=== PATIENT | female | born 1990 | race African-American/Black ===

== ENCOUNTER 2016-11-30 17:54 | Inpatient (IN) | payer BC ==
[~2016-11-30] VITALS: Ht 170.2 cm; Wt 97.5 kg
[~2016-11-30 17:54] MED LIST: HYDR-4100 PO; IBUP-1969 PO; LORA-259 PO; METO25TA6 PO; NECON; SOMA; VICODEN; VICODIN PO; XANAX PO
[2016-11-30 17:58] VITALS: BP 144/97; PULSE 128; RESP 22; TEMP 97.6; O2SAT 100
[2016-11-30] MEDS ORDERED: methylPREDNISolone SOD SUCC/PF 62.5 MG/ML VIAL IVP ONE (18:15)
[2016-11-30] MEDS ORDERED: DIPHENHYDRAMINE INJ 50 MG/ML VIAL IVP ONE (18:15)
[2016-11-30] MEDS ORDERED: FAMOTIDINE PF 20 MG/2 ML VIAL IVP ONE (18:15)
[2016-11-30 19:06] LABS: BASOPHILS % (AUTO) 0.3 % (0.0-2.0); EOSINOPHILS % (AUTO) 0.2 % (0.0-4.0); HEMOGLOBIN 13.4 g/dL (12.0-16.0); LYMPHOCYTES # (AUTO) 2.2 K/uL (1.0-5.5); LYMPHOCYTES % (AUTO) 20.5 % (20.5-51.5); MEAN CORPUSCULAR HEMOGLOBIN 26 pg (27-31); MEAN CORPUSCULAR HGB CONC 33 % (32-36); MEAN CORPUSCULAR VOLUME 80 fL (79.0-98.0); MONOCYTES # (AUTO) 0.4 K/uL (0.0-1.0); MONOCYTES % (AUTO) 3.5 % (1.7-9.3); NEUTROPHILS # (AUTO) 7.9 K/uL (1.8-7.7); NEUTROPHILS % (AUTO) 75.5 % (40.0-70.0); PLATELET COUNT (AUTO) 426 K/uL (130-430); RED BLOOD CELL COUNT(AUTO) 5.11 MIL/uL (4.2-6.2); RED CELL DISTRIBUTION WIDTH 17.1 % (9.0-15.0); WHITE BLOOD COUNT (AUTO) 10.5 K/uL (4.8-10.8)
[2016-11-30 20:00] LABS: BILIRUBIN,URINE NEGATIVE (NEGATIVE); BLOOD, URINE NEGATIVE (NEGATIVE); CLARITY/URINE HAZY (CLEAR); COLOR,URINE YELLOW (YELLOW); GLUCOSE,URINE NEGATIVE (NEGATIVE); KETONES,URINE NEGATIVE (NEGATIVE); LEUKOCYTE ESTERASE ,URINE NEGATIVE (NEGATIVE); NITRITE, URINE NEGATIVE (NEGATIVE); PROTEIN URINE TRACE (NEGATIVE); UROBILINOGEN,URINE 0.2 (0.2-1.0)
[2016-11-30 20:11] LABS: BACTERIA,URINE FEW /HPF (None Seen); MUCUS,URINE 2+ /LPF (None Seen); RBC,URINE 0-3 /HPF (0-3); URINE AMORPHOUS URATE 1+ /HPF (None Seen); WBC,URINE 0-3 /HPF (0-3)
[2016-11-30 20:36] LABS: CALCIUM 9.7 mg/dL (8.4-11.0); CREATININE 0.9 mg/dL (0.55-1.30); POTASSIUM 3.4 mmol/L (3.5-5.1)
[2016-11-30 20:42] LABS: ALBUMIN 4.8 g/dL (3.4-4.8); TOTAL BILIRUBIN 0.2 mg/dL (0.0-1.0); TOTAL PROTEIN, SERUM 9.2 g/dL (6.4-8.3)
[2016-11-30] MEDS ORDERED: KETOROLAC TROMETHAMINE 60 MG/2 ML VIAL IM ONE (22:00)
[2016-11-30] MEDS ORDERED: ONDANSETRON 4 MG ODT TAB PO ONE (22:00)
[2016-11-30] MEDS ORDERED: levETIRAcetam 1,000 MG IV BAG 100 ML IV ONE (22:45)
[2016-11-30] MEDS ORDERED: MORPHINE 4 MG/ML INJ. SYRINGE IVP ONE (23:00)
[2016-11-30] MEDS ORDERED: LORazepam 2 MG/ML VIAL (FOR ER USE) IVP ONE (23:45)
[2016-11-30] MEDS ORDERED: LORazepam 2 MG/ML VIAL (FOR ER USE) ONE (23:46)
[2016-12-01] VITALS (7 sets, daily range): BP systolic 120–135; BP diastolic 75–82; PULSE 94–123; RESP 17–24; TEMP 96.9–97.9; O2SAT 98–100
[2016-12-01] MEDS ORDERED: LORazepam 2 MG/ML VIAL (FOR ER USE) IVP ONE
[2016-12-01] MEDS ORDERED: LEVE250T2 PO (00:12)
[2016-12-01] MEDS ORDERED: TOP25 PO (00:12)
[2016-12-01] MEDS ORDERED: MORPHINE 4 MG/ML INJ. SYRINGE IVP ONE (00:45)
[2016-12-01] MEDS: NACL 0.9% 1,000 ML IV SCH ×2 (03:09→20:53)
[2016-12-01] MEDS: LORazepam 2 MG/ML VIAL IVP PRN ×5 (03:14→16:38)
[2016-12-01] MEDS ORDERED: DESV50TA4 PO (04:39)
[2016-12-01] MEDS ORDERED: SOM350 PO (04:39)
[2016-12-01] MEDS ORDERED: OXCA150T5 PO (04:39)
[2016-12-01] MEDS ORDERED: ESZO3TAB10 PO (04:39)
[2016-12-01] MEDS ORDERED: PHENYTOIN SODIUM 100 MG/2 ML VIAL (DILANTIN) ONE (04:56)
[2016-12-01] MEDS ORDERED: PHENYTOIN SODIUM INJ 500 MG in NS 50 ML IV ONE (05:00)
[2016-12-01] MEDS ORDERED: DIAZEPAM 10 MG/2 ML DISP.SYRIN IVP ONE (06:00)
[2016-12-01] MEDS ORDERED: DIAZEPAM 10 MG/2 ML DISP.SYRIN ONE (06:11)
[2016-12-01 07:27] LABS: BILIRUBIN,URINE NEGATIVE (NEGATIVE); BLOOD, URINE NEGATIVE (NEGATIVE); CLARITY/URINE HAZY (CLEAR); COLOR,URINE AMBER (YELLOW); GLUCOSE,URINE NEGATIVE (NEGATIVE); KETONES,URINE TRACE (NEGATIVE); LEUKOCYTE ESTERASE ,URINE NEGATIVE (NEGATIVE); NITRITE, URINE NEGATIVE (NEGATIVE); PROTEIN URINE TRACE (NEGATIVE); UROBILINOGEN,URINE 0.2 (0.2-1.0)
[2016-12-01 08:17] LABS: BACTERIA,URINE MODERATE /HPF (None Seen); RBC,URINE 0-3 /HPF (0-3); WBC,URINE 0-3 /HPF (0-3)
[2016-12-01 08:18] LABS: MUCUS,URINE 1+ /LPF (None Seen)
[2016-12-01] MEDS: TOPIRAMATE 25 MG TABLET(TOPAMAX) PO SCH ×2 (08:59→20:53)
[2016-12-01] MEDS ORDERED: levETIRAcetam 500 MG TABLET PO SCH (09:00)
[2016-12-01 09:06] LABS: BARBITURATE, URINE POSITIVE (NEG <=200); BENZODIAZEPINE, URINE POSITIVE (NEG <=150); OPIATE, URINE POSITIVE (NEG <=100); URINE OXYCODONE SCREEN POSITIVE (NEG <=100)
[2016-12-01 09:07] LABS: CANNABINOID, URINE NEGATIVE (NEG <=50); COCAINE, URINE NEGATIVE (NEG <=150); METHAMPHETAMINES SCREEN,URINE NEGATIVE (NEG <=500); PHENCYCLIDINE SCREEN,URINE NEGATIVE (NEG <=25); UR TRICYCLIC ANTIDEPRESSANTS NEGATIVE (NEG <=300); URINE AMPHETAMINE NEGATIVE (NEG <=500); URINE METHADONE NEGATIVE (NEG <=200); URINE PROPOXYPHENE SCREEN NEGATIVE (NEG <=300)
[2016-12-01] MEDS ORDERED: DESVENLAFAXINE SUCCINATE 100 MG PO SCH (10:15)
[2016-12-01] MEDS ORDERED: NON-FORMULARY MEDICATION (Eszopiclone (Lunesta) 3 MG) PO SCH (10:15)
[2016-12-01] MEDS ORDERED: CARISOPRODOL 350 MG TABLET PO PRN (10:15)
[2016-12-01] MEDS ORDERED: OXcarbazepine 150 MG TABLET(TRILEPTAL) PO ONE (11:30)
[2016-12-01] MEDS ORDERED: PRISTIQ 100 MG PO ONE (17:45)
[2016-12-01] MEDS: levETIRAcetam 500 MG TABLET PO SCH (20:54)
[2016-12-01] MEDS: HYDROcodone/ACETAMIN 5-325 MG TAB (NORCO/ VICODIN) PO PRN (20:55)
[2016-12-01] MEDS ORDERED: ZOLPIDEM TARTRATE 5 MG TABLET PO SCH (21:00)
[2016-12-02] MEDS: LORazepam 2 MG/ML VIAL IVP PRN ×4 (00:10→14:47)
[2016-12-02 00:46] VITALS: BP 117/70; PULSE 109; RESP 17; TEMP 97.3; O2SAT 100
[2016-12-02 04:00] VITALS: BP 106/68; PULSE 112; RESP 17; TEMP 97.9; O2SAT 99
[2016-12-02 07:48] VITALS: BP 119/77; PULSE 84; RESP 18; TEMP 98.5; O2SAT 100
[2016-12-02] MEDS: TOPIRAMATE 25 MG TABLET(TOPAMAX) PO SCH (08:22)
[2016-12-02] MEDS: levETIRAcetam 500 MG TABLET PO SCH (08:22)
[2016-12-02] MEDS: HYDROcodone/ACETAMIN 5-325 MG TAB (NORCO/ VICODIN) PO PRN ×2 (08:23→14:47)
[2016-12-02] MEDS ORDERED: PRISTIQ 100 MG PO SCH (09:00)
[2016-12-02] MEDS ORDERED: OXcarbazepine 150 MG TABLET(TRILEPTAL) PO SCH (09:00)
[2016-12-02 12:00] VITALS: BP 125/85; PULSE 108; RESP 16; TEMP 97.9; O2SAT 100
[2016-12-02 15:06] VITALS: BP 125/85; PULSE 108; RESP 16; TEMP 97.9; O2SAT 100
[2016-12-02] MEDS ORDERED: LEVE500T13 PO (15:20)
== END 2016-12-02 16:05 | disposition home or self-care (01) | DRG 101 ==
LOC: SED 17:54 → STU 12-01 01:11
PROVIDERS: ADMIT Internal Medicine; ATTEND Internal Medicine
DX: R56.9 Unspecified convulsions (principal); E66.9 Obesity, unspecified; M19.90 Unspecified osteoarthritis, unspecified site; T50.905A Adverse effect of unspecified drugs, medicaments and biological substances, initial encounter; Y92.098 Other place in other non-institutional residence as the place of occurrence of the external cause; Z88.8 Allergy status to other drugs, medicaments and biological substances; Z68.33 Body mass index [BMI] 33.0-33.9, adult
CPT/HCPCS: 36415; 70450-TC; 80053; 80307; 81000-TC; 81025; 83605; 85025; 87040-TC; 93005; 96365; 96372; 96375; 96376; 99291; J1165; J1885; J1953; J2060; J2270; J3360; J7030; Q0162

== ENCOUNTER 2016-12-04 14:07 | Emergency (ER) | payer BC ==
[~2016-12-04] VITALS: Ht 170.2 cm; Wt 104.3 kg
[2016-12-04 14:07] VITALS: BP 132/81; PULSE 80; RESP 16; TEMP 98.2; O2SAT 99
[~2016-12-04 14:07] MED LIST changes: +DESV50TA4 PO; +ESZO3TAB10 PO; +LEVE250T2 PO; +LEVE500T13 PO; +OXCA150T5 PO; +SOM350 PO; +TOP25 PO
[2016-12-04] MEDS ORDERED: LORazepam 2 MG/ML VIAL (FOR ER USE) IVP ONE ×2 (14:30→15:15)
[2016-12-04 15:39] LABS: BASOPHILS % (AUTO) 0.3 % (0.0-2.0); EOSINOPHILS % (AUTO) 0.6 % (0.0-4.0); HEMATOCRIT 38.5 % (36-48); HEMOGLOBIN 12.7 g/dL (12.0-16.0); LYMPHOCYTES # (AUTO) 2.2 K/uL (1.0-5.5); LYMPHOCYTES % (AUTO) 29.2 % (20.5-51.5); MEAN CORPUSCULAR HEMOGLOBIN 27 pg (27-31); MEAN CORPUSCULAR HGB CONC 33 % (32-36); MEAN CORPUSCULAR VOLUME 83 fL (79.0-98.0); MONOCYTES # (AUTO) 0.3 K/uL (0.0-1.0); MONOCYTES % (AUTO) 4.4 % (1.7-9.3); NEUTROPHILS # (AUTO) 4.9 K/uL (1.8-7.7); NEUTROPHILS % (AUTO) 65.5 % (40.0-70.0); PLATELET COUNT (AUTO) 327 K/uL (130-430); RED BLOOD CELL COUNT(AUTO) 4.67 MIL/uL (4.2-6.2); RED CELL DISTRIBUTION WIDTH 17.5 % (9.0-15.0); WHITE BLOOD COUNT (AUTO) 7.4 K/uL (4.8-10.8)
[2016-12-04] MEDS ORDERED: HYDROmorphone 1 MG INJ. 1 MG/ML AMPUL IVP ONE (15:45)
[2016-12-04] MEDS ORDERED: ONDANSETRON HCL 4 MG/2 ML VIAL IVP ONE (15:45)
[2016-12-04 15:49] LABS: BILIRUBIN,URINE NEGATIVE (NEGATIVE); BLOOD, URINE NEGATIVE (NEGATIVE); CLARITY/URINE CLEAR (CLEAR); COLOR,URINE YELLOW (YELLOW); GLUCOSE,URINE NEGATIVE (NEGATIVE); KETONES,URINE NEGATIVE (NEGATIVE); LEUKOCYTE ESTERASE ,URINE NEGATIVE (NEGATIVE); NITRITE, URINE NEGATIVE (NEGATIVE); PROTEIN URINE NEGATIVE (NEGATIVE); UROBILINOGEN,URINE 0.2 (0.2-1.0)
[2016-12-04 15:51] LABS: CALCIUM 8.9 mg/dL (8.4-11.0); CREATININE 0.91 mg/dL (0.55-1.30); POTASSIUM 3.8 mmol/L (3.5-5.1)
[2016-12-04 15:56] LABS: ALBUMIN 4.1 g/dL (3.4-4.8); TOTAL BILIRUBIN 0.2 mg/dL (0.0-1.0)
[2016-12-04 16:11] LABS: BARBITURATE, URINE POSITIVE (NEG <=200); BENZODIAZEPINE, URINE POSITIVE (NEG <=150); CANNABINOID, URINE NEGATIVE (NEG <=50); COCAINE, URINE NEGATIVE (NEG <=150); METHAMPHETAMINES SCREEN,URINE NEGATIVE (NEG <=500); OPIATE, URINE NEGATIVE (NEG <=100); PHENCYCLIDINE SCREEN,URINE NEGATIVE (NEG <=25); UR TRICYCLIC ANTIDEPRESSANTS NEGATIVE (NEG <=300); URINE AMPHETAMINE NEGATIVE (NEG <=500); URINE METHADONE NEGATIVE (NEG <=200); URINE OXYCODONE SCREEN POSITIVE (NEG <=100); URINE PROPOXYPHENE SCREEN NEGATIVE (NEG <=300)
[2016-12-04 17:30] VITALS: BP 128/87; PULSE 106; RESP 16; TEMP 98.2; O2SAT 99
== END 2016-12-04 17:30 | disposition left against medical advice (07) ==
LOC: SED 14:07
DX: R56.9 Unspecified convulsions (principal); Z88.8 Allergy status to other drugs, medicaments and biological substances; Z88.6 Allergy status to analgesic agent
CPT/HCPCS: 36415; 72125; 80053; 80307; 81003; 81025; 85025; 93005; 96374; 96375; 96376; 99285; J1170; J2060; J2405

== ENCOUNTER 2016-12-28 14:36 | Emergency (ER) | payer BC ==
[~2016-12-28] VITALS: Ht 170.2 cm; Wt 99.8 kg
[~2016-12-28 14:36] MED LIST changes: -HYDR-4100 PO; -IBUP-1969 PO; -LEVE250T2 PO; -LORA-259 PO; -METO25TA6 PO; -NECON; -SOMA; -VICODEN; -VICODIN PO; -XANAX PO
[2016-12-28 14:41] VITALS: BP_SYST 132
[2016-12-28] MEDS ORDERED: MORPHINE 4 MG/ML INJ. SYRINGE IM ONE (15:00)
[2016-12-28] MEDS ORDERED: LORazepam 2 MG/ML VIAL (FOR ER USE) IM ONE (15:00)
[2016-12-28] MEDS ORDERED: ONDANSETRON 4 MG ODT TAB PO ONE (15:15)
[2016-12-28] MEDS ORDERED: ONDANSETRON 4 MG ODT TAB ONE (15:28)
[2016-12-28 15:55] VITALS: BP_SYST 132
== END 2016-12-28 15:55 | disposition home or self-care (01) ==
LOC: SED 14:36
DX: S16.1XXA Strain of muscle, fascia and tendon at neck level, initial encounter (principal); S09.90XA Unspecified injury of head, initial encounter; R56.9 Unspecified convulsions; Z88.8 Allergy status to other drugs, medicaments and biological substances; W19.XXXA Unspecified fall, initial encounter; Y93.89 Activity, other specified; Y99.8 Other external cause status; Y92.89 Other specified places as the place of occurrence of the external cause
CPT/HCPCS: 70450; 72125; 81025; 96372; 99284; J2060; J2270; Q0162

== ENCOUNTER 2018-05-09 20:38 | Emergency (ER) | payer MEDICAID ==
[~2018-05-09] VITALS: Ht 172.7 cm; Wt 90.7 kg
--- NOTE | 2018-05-09 20:38 | NUR ---
Patient to ER bed 6 to gown for evaluation. Side rails up.
[2018-05-09 20:42] VITALS: BP_SYST 126
--- NOTE | 2018-05-09 20:42 | NUR ---
Patient sitting on gurney and stated "I feel a seizure coming, I get this feeling when I'm about to get one". Patient noted with seizure-like activity but able to follow verbal command.
--- NOTE | 2018-05-09 20:42 | NUR ---
After patient was placed on gurney, patient had seizure like activity. Patient was able to follow commands during the seizure like activity. ER aware
--- NOTE | 2018-05-09 20:46 | NUR ---
Patient to ER C/O migraine headache 8/10 and generalized body aches today. Patient has Hx of seizures. At registration patient requested wheelchair, slumped in the wheelchair and was observed by admission supervisor advertising dispatch clerks and nursing staff having "seizure like activity" while sitting in the whelchair. Patient was brought back to ER bed 6, in transit patient was calm, answering questions and following commands. After being placed on gurney, patient proceeded to have another "seizure like activity" which lasted aproximately 2 minutes. After which, patient AAOx4, follows commands and answers appropriately. C/O 8/10 migraine headache with nausea. No signs of acute distress.
--- NOTE | 2018-05-09 20:48 | NUR ---
Patient ambulated with steady gait to the restroom to provide urine sample.
--- NOTE | 2018-05-09 20:56 | NUR ---
[facility] Report filed and faxed to [phone].
--- NOTE | 2018-05-09 21:01 | NUR ---
ER MD Rosales Liu at bedside evaluating the patient.
[2018-05-09] MEDS ORDERED: KETOROLAC TROMETHAMINE 30 MG VIAL IVP ONE (21:45)
[2018-05-09] MEDS ORDERED: DIPHENHYDRAMINE INJ 50 MG/ML VIAL IVP ONE (21:45)
[2018-05-09] MEDS ORDERED: ONDANSETRON HCL 4 MG/2 ML VIAL IVP ONE (21:45)
[2018-05-09] MEDS ORDERED: CYCLOBENZAPRINE HCL 10 MG TABLET (FLEXERIL) PO ONE (21:45)
[2018-05-09] MEDS ORDERED: NS 500 ML IV ONE (21:45)
--- NOTE | 2018-05-09 22:00 | NUR ---
# 20 gauge angiocath placed to left forearm. Use of asceptic technique. Opsite placed over site. Blood return noted. Blood for lab drawn from site. Flushed with 10 cc of normal saline. No evidence of infiltration noted. Patient tolerated well.
--- NOTE | 2018-05-09 22:26 | NUR ---
Patient stated "i am very anxious, i feel a seizure comming, can you please get the doctor in here" ER MD Caba aware.
--- NOTE | 2018-05-09 22:42 | NUR ---
Patient stated to the nurse "i need to talk to the doctor, the pain is still there and i don't have any pain medication for home, i need medication" Patient made aware that she received pain medication and needs to give it time to work. Patient also advised to see primary physician for continuous pain control. Patient requested [place] and MD name. ER MD aware.
[2018-05-09] MEDS ORDERED: ALPRAZolam 0.25 MG TABLET PO ONE (22:45)
--- NOTE | 2018-05-09 22:50 | NUR ---
ER MD Caba at bedside discussing plan of care and discharge with patient
[2018-05-09] MEDS ORDERED: MORPHINE 4 MG/ML INJ. SYRINGE IVP ONE (23:00)
--- NOTE | 2018-05-09 23:09 | NUR ---
Patient complaining of pain to back of head. 8/10 throbbing. Patient medicated with Morphine 4 mg ivp. Patient tolerated well. Will continue to monitor
[2018-05-09 23:41] VITALS: BP_SYST 124
--- NOTE | 2018-05-09 23:41 | NUR ---
Patient given written and verbal discharge instructions and verbalizes understanding. ER MD Caba discussed with patient the results and treatment provided. Patient in stable condition. ID arm band removed. IV catheter removed intact and dressing applied, no active bleeding. Patient educated on pain management and to follow up with PMD. Pain Scale 0/10. Opportunity for questions provided and answered.
== END 2018-05-09 23:41 | disposition home or self-care (01) ==
LOC: SED 20:38
DX: G43.909 Migraine, unspecified, not intractable, without status migrainosus (principal); K59.00 Constipation, unspecified; F41.9 Anxiety disorder, unspecified; G40.909 Epilepsy, unspecified, not intractable, without status epilepticus; Z88.6 Allergy status to analgesic agent; Z88.8 Allergy status to other drugs, medicaments and biological substances; Z79.899 Other long term (current) drug therapy
CPT/HCPCS: 74018; 96361; 96374; 96375; 99285; J1200; J1885; J2270; J2405; J7040